=== PATIENT | male | born 1980 | race Caucasian/White ===

== ENCOUNTER 2017-12-23 08:20 | Emergency (ER) | payer OTHER ==
[~2017-12-23] VITALS: Ht 177.8 cm; Wt 108.9 kg
[~2017-12-23 08:20] MED LIST: ALLERGY MED; AMOXICILLIN875 MG PO; FLEXERIL PO; FLOMAX0.4 MG PO; HYDROCODONE-APA1 TA1 PO; HYOSCYAMINE0.125 M1; LIDOCAINE VISC100 M1 MM; NAPROSYN500 MG PO; NOHOMEMEDICATIONS; PERCOCET 5-3251 EACH; ULTRAM 50MG TAB50 MG PO; ZOFRAN ODT4 MG PO
[2017-12-23 08:36] LABS: URINE BLOOD 2+ (Negative); URINE CLARITY CLEAR; URINE COLOR YELLOW; URINE GLUCOSE-RANDOM NEGATIVE (Negative); URINE LEUKOCYTES-REFLEX NEGATIVE (Negative); URINE NITRITE-REFLEX NEGATIVE (Negative); URINE PROTEIN 1+ (Negative); URINE SPECIFIC GRAVITY >= 1.030 (1.005-1.030); URINE UROBILINOGEN 0.2 E.U./dl (0.2-1.0)
[2017-12-23 08:42] LABS: URINE BILIRUBIN 2+ (Negative); URINE KETONES 3+ (Negative)
[2017-12-23 08:45] LABS: ICTOTEST (BILI CONFIRMATORY) Negative (Negative)
[2017-12-23 08:46] LABS: URINE REDUCING SUBSTANCE NEGATIVE (Negative)
[2017-12-23 08:46] LABS: ABSOLUTE BASOPHILS 0.1 thou/uL (0.0-0.2); ABSOLUTE EOSINOPHILS 0.1 thou/uL (0.0-0.7); ABSOLUTE LYMPHOCYTES 1.2 thou/uL (0.8-5.3); ABSOLUTE MONOCYTES 0.4 thou/uL (0.0-1.2); ABSOLUTE NEUTROPHILS 2.9 thou/uL (1.6-8.1); BASOPHILS 1.1 %; HEMOGLOBIN 16.7 gm/dL (14.0-18.0); LYMPHOCYTES 25.5 %; MCH 29.3 pg (26.0-34.0); MCHC 34.9 g/dL (28.0-37.0); MCV 84.2 fL (80.0-100.0); MONOCYTES 9.5 %; MPV 10.3 fl. (7.2-11.1); NUCLEATED RBCS 0 /100WBC; PLATELET COUNT* 167 thou/uL (150-400); POLYS 60.9 %; RDW-CV 14.4 % (10.5-14.5); WBC 4.7 thou/uL (4.0-11.0)
[2017-12-23 08:51] LABS: CALCIUM 9.6 mg/dL (8.5-10.1); CREATININE 1.1 mg/dL (0.6-1.3); POTASSIUM 3.6 mmol/L (3.5-5.1)
[2017-12-23 08:56] LABS: ALBUMIN 4.4 g/dL (3.4-5.0); TOTAL BILIRUBIN 0.9 mg/dL (<0.1-1.0); TOTAL PROTEIN 7.9 g/dL (6.4-8.2)
[2017-12-23 09:14] LABS: BACTERIA-REFLEX 1-9 Few /HPF (None Seen); CASTS None Seen /LPF (None Seen); MUCUS 4-6 Moderate strn/LPF (None Seen); SQUAMOUS 0-3 Few /LPF (0-3); URINE RBC 3-10 Few /HPF (0-2); URINE WBC-REFLEX 0-5 Rare /HPF (0-5)
[2017-12-23 09:15] LABS: CALCIUM OXALATE 0-3 Few /LPF (None Seen)
[2017-12-23] MEDS ORDERED: FLOMAX0.4 MG PO (09:21)
[2017-12-23] MEDS ORDERED: CIPROFLOXACIN500 M1 PO (09:21)
[2017-12-23] MEDS ORDERED: NORCO 5-325 TA1 EACH PO (09:21)
[2017-12-23 09:47] VITALS: BP 107/63
== END 2017-12-23 09:48 | disposition home or self-care (01) ==
LOC: M.ERS 08:20
PROVIDERS: Family Medicine
DX: N20.0 Calculus of kidney (principal); Z90.49 Acquired absence of other specified parts of digestive tract; Z87.442 Personal history of urinary calculi; Z87.440 Personal history of urinary (tract) infections

== ENCOUNTER 2018-07-06 14:00 | Emergency (ER) | payer OTHER ==
[~2018-07-06] VITALS: Ht 175.3 cm; Wt 90.7 kg
[~2018-07-06 14:00] MED LIST changes: +CIPROFLOXACIN500 M1 PO; +NORCO 5-325 TA1 EACH PO
[2018-07-06] MEDS ORDERED: HYDROCODONE-ACE15 ML PO (14:19)
[2018-07-06 14:41] LABS: URINE BILIRUBIN NEGATIVE (Negative); URINE BLOOD NEGATIVE (Negative); URINE CLARITY CLEAR; URINE COLOR YELLOW; URINE GLUCOSE-RANDOM NEGATIVE (Negative); URINE KETONES NEGATIVE (Negative); URINE LEUKOCYTES-REFLEX NEGATIVE (Negative); URINE NITRITE-REFLEX NEGATIVE (Negative); URINE PROTEIN NEGATIVE (Negative); URINE SPECIFIC GRAVITY 1.025 (1.005-1.030); URINE UROBILINOGEN 0.2 E.U./dl (0.2-1.0)
[2018-07-06 14:54] LABS: ABSOLUTE BASOPHILS 0.1 thou/uL (0.0-0.2); ABSOLUTE EOSINOPHILS 0.1 thou/uL (0.0-0.7); ABSOLUTE LYMPHOCYTES 1.3 thou/uL (0.8-5.3); ABSOLUTE MONOCYTES 0.5 thou/uL (0.0-1.2); ABSOLUTE NEUTROPHILS 2.8 thou/uL (1.6-8.1); BASOPHILS 1.2 %; EOSINOPHILS 2.9 %; HEMATOCRIT 45.7 % (42.0-52.0); HEMOGLOBIN 15.8 gm/dL (14.0-18.0); MCHC 34.5 g/dL (28.0-37.0); MCV 87.1 fL (80.0-100.0); MONOCYTES 10.1 %; MPV 8.9 fl. (7.2-11.1); NUCLEATED RBCS 0 /100WBC; PLATELET COUNT* 198 thou/uL (150-400); POLYS 58.8 %; RBC 5.25 mil/uL (4.50-6.00); RDW-CV 13.3 % (10.5-14.5); WBC 4.8 thou/uL (4.0-11.0)
[2018-07-06 15:04] LABS: CALCIUM 8.8 mg/dL (8.5-10.1); POTASSIUM 4.1 mmol/L (3.5-5.1)
[2018-07-06 15:09] LABS: ALBUMIN 3.7 g/dL (3.4-5.0); TOTAL BILIRUBIN 0.6 mg/dL (<0.1-1.0)
[2018-07-06] MEDS ORDERED: CARAFATE 1 GM TA1 GM PO (16:07)
[2018-07-06] MEDS ORDERED: BENTYL 20 MG TA20 M1 PO (16:07)
[2018-07-06 16:24] VITALS: BP 124/59
== END 2018-07-06 16:25 | disposition home or self-care (01) ==
LOC: M.ERS 14:00
PROVIDERS: Nurse Practitioner Family
DX: K27.9 Peptic ulcer, site unspecified, unspecified as acute or chronic, without hemorrhage or perforation (principal); Z90.49 Acquired absence of other specified parts of digestive tract

== ENCOUNTER 2018-07-26 00:25 | Emergency (ER) | payer OTHER ==
[~2018-07-26] VITALS: Ht 175.3 cm; Wt 94.3 kg
[~2018-07-26 00:25] MED LIST changes: +BENTYL 20 MG TA20 M1 PO; +CARAFATE 1 GM TA1 GM PO; +HYDROCODONE-ACE15 ML PO
[2018-07-26] MEDS ORDERED: NOHOMEMEDICATIONS (00:38)
[2018-07-26 00:57] LABS: ABSOLUTE EOSINOPHILS 0.1 thou/uL (0.0-0.7); ABSOLUTE LYMPHOCYTES 1.4 thou/uL (0.8-5.3); ABSOLUTE MONOCYTES 0.5 thou/uL (0.0-1.2); ABSOLUTE NEUTROPHILS 4.7 thou/uL (1.6-8.1); BASOPHILS 0.6 %; EOSINOPHILS 1.3 %; HEMATOCRIT 44.3 % (42.0-52.0); HEMOGLOBIN 15.1 gm/dL (14.0-18.0); LYMPHOCYTES 20.5 %; MCH 29.8 pg (26.0-34.0); MCHC 34.1 g/dL (28.0-37.0); MCV 87.3 fL (80.0-100.0); NUCLEATED RBCS 0 /100WBC; PLATELET COUNT* 206 thou/uL (150-400); POLYS 70.6 %; RBC 5.07 mil/uL (4.50-6.00); WBC 6.6 thou/uL (4.0-11.0)
[2018-07-26 01:06] LABS: ANION GAP 8 mmol/L (7-16); BUN 22 mg/dL (7-18); CALCIUM 8.9 mg/dL (8.5-10.1); CHLORIDE 103 mmol/L (98-107); CO2 25 mmol/L (21-32); CREATININE 1.1 mg/dL (0.6-1.3); GLUCOSE 255 mg/dL (70-99); POTASSIUM 3.5 mmol/L (3.5-5.1); SODIUM 136 mmol/L (136-145)
[2018-07-26 01:15] LABS: ALBUMIN 3.7 g/dL (3.4-5.0); ALKALINE PHOSPHATASE 91 U/L (46-116); LIPASE 187 U/L (73-393); SGOT 19 U/L (15-37); SGPT 33 U/L (30-65); TOTAL BILIRUBIN 0.3 mg/dL (<0.1-1.0); TOTAL PROTEIN 6.9 g/dL (6.4-8.2); TROPONIN-I LEVEL <0.06 ng/mL (<0.06)
[2018-07-26 04:40] VITALS: BP 99/51
--- NOTE | 2018-07-26 14:32 | EKG ---
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: : 1980 Requested By: Radha Bray Order Number: [id number] MD: Jules Arias Measurements Intervals [place] Rate: 97 P: 36 AR: 151 QRS: 20 QRSD: 118 T: 46 QT: 362 QTc: 460 Interpretive Statements Sinus rhythm Incomplete right bundle branch block Baseline wander in lead(s) V2 No previous ECG available for comparison Electronically Signed On 07-26-2018 14:31:58 [employer]ING [employer] LEAD[employer] by Jules Arias [email or web address] <ELECTRONICALLY SIGNED> By: Jules Arias MD, [facility] 07/26/18 1431 0029 0029 Jules Arias MD, FACC /EPI
== END 2018-07-26 04:40 | disposition home or self-care (01) ==
LOC: M.ERS 00:25
PROVIDERS: Personal Emergency Response Attendant
DX: F12.929 Cannabis use, unspecified with intoxication, unspecified (principal); R07.89 Other chest pain; Z90.49 Acquired absence of other specified parts of digestive tract; F17.210 Nicotine dependence, cigarettes, uncomplicated

== ENCOUNTER 2018-10-30 16:25 | Emergency (ER) | payer OTHER ==
[~2018-10-30] VITALS: Ht 175.3 cm; Wt 95.3 kg
[2018-10-30] MEDS ORDERED: AFRIN15 ML NASAL (17:52)
[2018-10-30] MEDS ORDERED: MEDROLDOSEPACK PO (17:52)
[2018-10-30] MEDS ORDERED: AUGMENTIN 875-1 EACH PO (17:52)
[2018-10-30] MEDS ORDERED: ACETAMINOPHEN-1 EAC1 PO (17:52)
[2018-10-30 18:50] VITALS: BP 125/74
== END 2018-10-30 18:51 | disposition home or self-care (01) ==
LOC: M.ERS 16:25
DX: J01.00 Acute maxillary sinusitis, unspecified (principal); J01.20 Acute ethmoidal sinusitis, unspecified; R42 Dizziness and giddiness; F17.210 Nicotine dependence, cigarettes, uncomplicated; Z90.49 Acquired absence of other specified parts of digestive tract; Z87.442 Personal history of urinary calculi; Z87.440 Personal history of urinary (tract) infections

== ENCOUNTER 2019-03-10 19:57 | Emergency (ER) | payer OTHER ==
[~2019-03-10] VITALS: Ht 175.3 cm; Wt 95.7 kg
[~2019-03-10 19:57] MED LIST changes: +ACETAMINOPHEN-1 EAC1 PO; +AFRIN15 ML NASAL; +AUGMENTIN 875-1 EACH PO; +MEDROLDOSEPACK PO
[2019-03-10] MEDS ORDERED: IBUPROFEN 800800 M1 PO (21:11)
[2019-03-10] MEDS ORDERED: CYCLOBENZAPRINE5 MG PO (21:11)
[2019-03-10 21:23] VITALS: BP 127/76
== END 2019-03-10 21:23 | disposition home or self-care (01) ==
LOC: M.ERS 19:57
DX: M54.6 Pain in thoracic spine (principal); Z90.49 Acquired absence of other specified parts of digestive tract; Z87.442 Personal history of urinary calculi; Z87.440 Personal history of urinary (tract) infections

== ENCOUNTER 2019-11-18 03:50 | Emergency (ER) | payer BC ==
[~2019-11-18] VITALS: Ht 175.3 cm; Wt 102.1 kg
[~2019-11-18 03:50] MED LIST changes: +CYCLOBENZAPRINE5 MG PO; +IBUPROFEN 800800 M1 PO
[2019-11-18 04:16] LABS: URINE BILIRUBIN NEGATIVE (Negative); URINE BLOOD NEGATIVE (Negative); URINE CLARITY CLEAR; URINE COLOR YELLOW; URINE GLUCOSE-RANDOM NEGATIVE (Negative); URINE KETONES TRACE (Negative); URINE LEUKOCYTES-REFLEX NEGATIVE (Negative); URINE NITRITE-REFLEX NEGATIVE (Negative); URINE PROTEIN NEGATIVE (Negative); URINE SPECIFIC GRAVITY >= 1.030 (1.005-1.030); URINE UROBILINOGEN 0.2 E.U./dl (0.2-1.0)
[2019-11-18 04:17] LABS: HEMATOCRIT 47.8 % (42.0-52.0); HEMOGLOBIN 16.9 gm/dL (14.0-18.0); MCHC 35.4 g/dL (28.0-37.0); MPV 8.8 fl. (7.2-11.1); NUCLEATED RBCS 0 /100WBC; PLATELET COUNT* 198 thou/uL (150-400); RBC 5.62 mil/uL (4.50-6.00); RDW-CV 13.5 % (10.5-14.5)
[2019-11-18 04:30] LABS: CALCIUM 8.8 mg/dL (8.5-10.1); CREATININE 0.9 mg/dL (0.6-1.3); POTASSIUM 4.1 mmol/L (3.5-5.1)
[2019-11-18 04:34] LABS: ALBUMIN 4.2 g/dL (3.4-5.0); TOTAL PROTEIN 7.8 g/dL (6.4-8.2)
[2019-11-18] MEDS ORDERED: PHENERGAN 25 MG25 M1 PO (04:59)
[2019-11-18 05:28] LABS: ABSOLUTE EOSINOPHILS 0.1 thou/uL (0.0-0.7); ABSOLUTE LYMPHOCYTES 0.1 thou/uL (0.8-5.3); ABSOLUTE MONOCYTES 0.3 thou/uL (0.0-1.2); ABSOLUTE NEUTROPHILS 12.5 thou/uL (1.6-8.1)
[2019-11-18 05:30] LABS: PLATELET ESTIMATE ADEQUATE
[2019-11-18 05:50] VITALS: BP 164/85
== END 2019-11-18 05:50 | disposition home or self-care (01) ==
LOC: M.ERS 03:50
PROVIDERS: Personal Emergency Response Attendant
DX: K52.9 Noninfective gastroenteritis and colitis, unspecified (principal); Z90.49 Acquired absence of other specified parts of digestive tract; Z87.442 Personal history of urinary calculi; Z87.440 Personal history of urinary (tract) infections